=== PATIENT | female | born 1960 | race Caucasian/White ===

== ENCOUNTER 2021-08-28 13:36 | Emergency (ER) | payer OTHER ==
[~2021-08-28] VITALS: Ht 175.3 cm; Wt 70.3 kg
--- OUTSIDE RECORDS SUMMARY | 2021-08-28 13:38 | XMS ---
PreManage Notification: THERESA STEWART Security Mill Washer Events No recent Security Events currently on file CRITERIA MET - [facility] CARE PROVIDERS SARAH ARAGON Physician Coiled Tubing Operator Current PHONE: [phone] Irish has no Care Guidelines for this patient. EMike VISIT COUNT (12 MO.) 1 [facility] TOTAL 1 NOTE: Visits indicate total known visits. ED/UCC VISIT TRACKING (12 MO.) 08/28/2021 13:36 [facility] [place] TYPE: Emergency COMPLAINT: - R HIP PAIN/SPASMS INPATIENT VISIT TRACKING (12 MO.) No inpatient visits to display in this time frame [email or web address]
[2021-08-28] MEDS ORDERED: CARISOPRODOL350 MG PO (21:00)
[2021-08-28] MEDS ORDERED: CELECOXIB100 MG PO (21:00)
[2021-08-28] MEDS ORDERED: ZOLPIDEM TARTRA10 MG PO (21:00)
[2021-08-28] MEDS ORDERED: CLONAZEPAM1 MG PO (21:01)
[2021-08-28] MEDS ORDERED: ASPIRIN81 MG PO (21:01)
[2021-08-28] MEDS ORDERED: CYCLOBENZAPRINE10 MG PO (23:02)
[2021-08-28] MEDS ORDERED: HYDROCODON-ACE1 EA10 PO (23:02)
== END 2021-08-28 23:18 | disposition home or self-care (01) ==
LOC: ED 13:36
DX: M62.838 Other muscle spasm (principal); Z88.5 Allergy status to narcotic agent; Z79.899 Other long term (current) drug therapy; Z79.82 Long term (current) use of aspirin
CPT/HCPCS: 36415; 80048; 81001; 99283

== ENCOUNTER 2021-09-01 09:56 | Emergency (ER) | payer OTHER ==
[~2021-09-01] VITALS: Ht 175.3 cm; Wt 70.3 kg
[~2021-09-01 09:56] MED LIST: ASPIRIN81 MG PO; CARISOPRODOL350 MG PO; CELECOXIB100 MG PO; CLONAZEPAM1 MG PO; CYCLOBENZAPRINE10 MG PO; HYDROCODON-ACE1 EA10 PO; ZOLPIDEM TARTRA10 MG PO
--- OUTSIDE RECORDS SUMMARY | 2021-09-01 10:02 | XMS ---
PreManage Notification: THERESA STEWART Security Edge Stitcher Events No recent Security Events currently on file CRITERIA MET - [facility] - 2 Visits in 30 Days - [facility] CARE PROVIDERS Merlene LeonardP-C Nurse Practitioner: Current PHONE: [phone] Irish has no Care Guidelines for this patient. [place] VISIT COUNT (12 MO.) 2 [facility] TOTAL 2 NOTE: Visits indicate total known visits. ED/UCC VISIT TRACKING (12 MO.) 09/01/2021 09:[address] [facility] [place] TYPE: Emergency COMPLAINT: - R HIP/BACK/LEG PAIN 08/28/2021 13:[address] 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
[2021-09-01] MEDS ORDERED: CYCLOBENZAPRINE10 MG PO (16:10)
[2021-09-01] MEDS ORDERED: HYDROCODON-ACE1 EA10 PO (16:10)
== END 2021-09-01 16:25 | disposition home or self-care (01) ==
LOC: ED 09:56
DX: M54.31 Sciatica, right side (principal); Z88.5 Allergy status to narcotic agent; Z79.899 Other long term (current) drug therapy; Z79.82 Long term (current) use of aspirin
CPT/HCPCS: 36415; 72148; 80048; 85025; 96374; 99284-25; J1170

== ENCOUNTER 2023-03-26 05:50 | Day surgery (SDC) | payer OTHER ==
[2023-03-24 10:23] VITALS: BP 124/83
[~2023-03-26] VITALS: Ht 175.3 cm; Wt 72.0 kg
[~2023-03-26 05:50] MED LIST changes: +NEURONTIN300 MG PO; +VOLTAREN ARTHRI20 GM TP
[2023-03-26 06:00] VITALS: BP 150/64
--- NOTE | 2023-03-26 08:24 | NUR ---
03/26/23 0824 Dulce,Marylu 0896 PT ARRIVED TO PACU ON RA, PT WAKES EASILY AND DENIES CONCERNS. PT FALLS ASLEEP EASILY, RESP EVEN AND UNLABORED.
[2023-03-26 08:42] VITALS: BP 120/72
--- NOTE | 2023-03-26 09:49 | OR ---
[facility] [address] [place], [place] [address] Signed DATE OF OPERATION: 03/26/2023 SURGEON: Viktoria Roa MD PREOPERATIVE DIAGNOSES: 1. Screening. 2. Chronic opioid induced constipation. 3. Internal and external hemorrhoids status post banding. 4. Diverticulosis. POSTOPERATIVE DIAGNOSES: 1. 4 mm polyp at 60 cm in splenic flexure. 2. 3 mm polyp at 8 cm in rectum. 3. Minimal to moderate diverticulosis (left greater than right). 4. Minimal internal and external hemorrhoids. 5. Internal hemorrhoid scarring, status post banding. PROCEDURE: Colonoscopy with hot biopsy. ESTIMATED BLOOD LOSS: None. INDICATIONS: Theresa is a 63-year-old female, asked to see me for a followup colonoscopy. We know she has a long history of chronic constipation exacerbated by opioids for her back issues. She has no family history of colon cancer or polyps. She really has no new lower GI complaints. The regional colorectal surgeon had banded her internal hemorrhoids. She reminded me that her father is a retired colorectal surgeon from the [place], [place] area. I had helped her with both upper and lower endoscopy back in 2007 at the age of 48. She had some routine biopsies from the colon that were negative. She had minimal diverticulosis along with minimal to moderate internal and external hemorrhoids. We had asked her to follow up in 10 years. At that time, she was able to get by with the Versed and fentanyl. She now happen to use opioids because of her chronic back issues. She also reminded me that she has severe postoperative nausea and vomiting. Normally patients do quite well with the propofol. Nevertheless, we did give her preoperative Zofran on this occasion. She also saw her energy projects lead last year and was given a good bill of health. We had reviewed those records as well. In the office I had given her a pamphlet on colonoscopy. We reviewed the nature of the test. There is risk including, but not limited to gas bloating, crampy abdominal pain, bleeding, Electronically Signed By: VIKTORIA ROA MD 03/26/23 0949 PATIENT NAME: THERESA STEWART OPERATIVE REPORT DATE OF : 62 REPORT #: [id number] PHYSICIAN: VIKTORIA ROA MD PCP: KENNETH RAMOS REPORT IS CONFIDENTIAL AND NOT TO BE RELEASED WITHOUT AUTHORIZATION [address] [address] Signed perforation requiring surgery, and missed diagnosis. We also reviewed the written instructions for her bowel prep line by line. She is very familiar with Dulcolax and MiraLAX. Of course, she needs monitored anesthesia care given her significant history of anxiety, requiring clonazepam as well as her history of opioid use. She had expressed understanding and wished to proceed. PROCEDURE NOTE: Theresa was taken into our endoscopy suite and placed in the left lateral decubitus position. She had been given Zofran 8 mg IV before we came in the room. She was given monitored anesthesia care with propofol infusion per our nurse local [place] truck driver. A digital rectal exam was performed. She does have small circumferential external hemorrhoids. She has good sphincter tone. There were no masses. The adult colonoscope was introduced and advanced under direct visualization of the camera. Theresa is tall and she does have a long redundant colon. It took mild abdominal compression and a little extra propofol to get around into the cecum itself. Her prep was quite excellent. We could easily see the appendiceal orifice and the ileocecal valve. The scope was then slowly withdrawn. We took pictures throughout for photodocumentation. She did have a few diverticula moderate in size in the right colon. There were two polyps mentioned above that we easily removed with the help of hot biopsy forceps. She does have diverticula in the left and sigmoid colon. They were moderate in size, few to moderate in number and scattered about. Once down in the rectum, we had retroflexed the scope. We could see the scar tissue from banding of her internal hemorrhoids. She had just one internal hemorrhoid column remaining. She has actually had nice efficacy from the banding. After this, the gas was suctioned out and the colonoscope removed. Theresa tolerated the procedure quite well. RECOMMENDATIONS: Theresa will follow up my office in 7 to 14 days to review her results. Viktoria Roa MD ALB/MODL /[id number] cc: Viktoria Roa MD Electronically Signed By: VIKTORIA ROA MD 03/26/23 0949 PATIENT NAME: THERESA STEWART OPERATIVE REPORT DATE OF : 62 REPORT #: [id number] PHYSICIAN: VIKTORIA ROA MD PCP: KENNETH RAMOS REPORT IS CONFIDENTIAL AND NOT TO BE RELEASED WITHOUT AUTHORIZATION [facility] [address] [place], [place] [address] Signed MIKAYLA Olivas Copies: VIKTORIA ROA MD ~ Electronically Signed By: VIKTORIA ROA MD 03/26/23 0949 PATIENT NAME: THERESA STEWART KAUSHIK OPERATIVE REPORT DATE OF : 62 REPORT #: [id number] PHYSICIAN: VIKTORIA ROA MD PCP: KENNETH RAMOS REPORT IS CONFIDENTIAL AND NOT TO BE RELEASED WITHOUT AUTHORIZATION
--- NOTE | 2023-03-30 15:24 | PATH ---
[facility] [address] [facility] [place], [place] [address] Signed SPECIMEN(S): A SPLENIC FLEXURE COLON POLYP AT 60 CM SPECIMEN(S): B RECTAL POLYP SPECIMEN SOURCE: A. SPLENIC FLEXURE COLON POLYP AT 60 CM B. RECTAL POLYP CLINICAL HISTORY: Screening colonoscopy. History of diverticulosis FINAL PATHOLOGIC DIAGNOSIS: A. Splenic flexure colon polyp at 60 cm: - Tubular adenoma (1 fragment). - Hyperplastic polyp (1 fragment). B. Rectal polyp: - Hyperplastic polyp (1 fragment). JVR:mfr MICROSCOPIC EXAMINATION: Histologic sections of all submitted blocks are examined by light microscopy. These findings, together with the gross examination, support the pathologic diagnosis. GROSS DESCRIPTION: A. The specimen, labeled and designated "Marisa, splenic flexure polyp at 60 cm," is received in formalin and consists of two rodriguez soft tissue fragments, ranging from 0.2 cm. Entirely submitted in (A1). B. The specimen, labeled and designated "Marisa, rectal polyp," is received in formalin and consists of one rodriguez soft tissue fragment, 0.1 cm. Entirely submitted in (B1). JS (under the direct supervision of a pathologist) The Gross Description was prepared using a voice recognition system. The report was reviewed for accuracy; however, sound-alike word errors, addition and/or deletions may occur. If there is any question about this report, please contact Client Services. PERFORMING LABORATORY: Technical component was performed by [facility], [address] [place] [address] (CLIA# [id number]). Professional interpretation was performed by [facility] PATIENT NAME: THERESA STEWART PATHOLOGY DATE OF : 62 REPORT #: [id number] PHYSICIAN: KEM PATHOLOGY PCP: KENNETH RAMOS REPORT IS CONFIDENTIAL AND NOT TO BE RELEASED WITHOUT AUTHORIZATION [facility] [address] [place], [place] [address] [place] [address] (CLIA#: [id number]). Diagnostician: Howie Lynch MD Pathologist Electronically Signed 03/30/2023 Copies: ~ PATIENT NAME: THERESA STEWART PATHOLOGY DATE OF : 62 REPORT #: [id number] PHYSICIAN: KEM PATHOLOGY PCP: KENNETH RAMOS REPORT IS CONFIDENTIAL AND NOT TO BE RELEASED WITHOUT AUTHORIZATION
== END 2023-03-26 08:52 | disposition home or self-care (01) ==
LOC: OPS 05:50 → DS 05:50 → OPS 06:05
PROVIDERS: ATTEND Colon & Rectal Surgery
PROC: 0DBC8ZX Excision of Ileocecal Valve, Via Natural or Artificial Opening Endoscopic, Diagnostic (ICD-10-PCS; principal; 2023-03-26 07:30)
DX: Z12.11 Encounter for screening for malignant neoplasm of colon (principal); D12.3 Benign neoplasm of transverse colon; K62.1 Rectal polyp; K57.30 Diverticulosis of large intestine without perforation or abscess without bleeding; K64.8 Other hemorrhoids; K64.4 Residual hemorrhoidal skin tags; K59.00 Constipation, unspecified; F11.90 Opioid use, unspecified, uncomplicated; M19.90 Unspecified osteoarthritis, unspecified site; J45.909 Unspecified asthma, uncomplicated
CPT/HCPCS: 00811; J0690; J1100; J2001; J2405; J2704; J7121

== ENCOUNTER 2024-02-25 07:25 | Day surgery (SDC) | payer OTHER ==
[~2024-02-25] VITALS: Ht 175.3 cm; Wt 74.5 kg
[~2024-02-25 07:25] MED LIST changes: +ALPRAZOLAM1 MG PO; +CEFAZOLIN SODIUM 2 GM/20 ML SYR IV SCH; +CLONAZEPAM1 MG; -CLONAZEPAM1 MG PO; +DICLOFENAC SODI50 MG PO; +GABAPENTIN300 MG; +IBLOOD GLUCOSE TEST STRIP 1 EA TEST VI PRN; +LACTATED RINGER'S 1,000 ML IV SCH; +LIDOCAINE HCL 1% 5 ML SDV INJ ONE; +MULTI VITAMIN1 EACH PO; +TRANEXAMIC ACID 2,000 MG in SODIUM CHLORIDE 0.9% 100 ML IV SCH; +VOLTAREN ARTHRI20 GM
[2024-02-25] MEDS ORDERED: ZOCOR20 MG PO (07:47)
[2024-02-25] MEDS ORDERED: LISINOPRIL5 MG PO (07:48)
[2024-02-25] MEDS ORDERED: ondansetron HCL 4 MG/2 ML VIAL ONE (07:52)
[2024-02-25] MEDS ORDERED: LIDOCAINE HCL 2% 5 ML SDV ONE (07:52)
[2024-02-25] MEDS ORDERED: KETOROLAC TROMETHAMINE 30 MG/ML VIAL ONE (07:52)
[2024-02-25 07:56] VITALS: BP 133/68
[2024-02-25] MEDS ORDERED: propofoL 200 MG/20 ML VIAL ONE (08:04)
[2024-02-25] MEDS ORDERED: MIDAZOLAM HCL 2 MG/2 ML VIAL ONE (08:04)
[2024-02-25] MEDS ORDERED: HYDROCODONE/ACETA 7.5/325 TAB PO PRN (08:15)
[2024-02-25] MEDS ORDERED: KETOROLAC TROMETHAMINE 15 MG/ML VIAL IV PRN (08:15)
[2024-02-25] MEDS ORDERED: fentaNYL citrate 100 MCG/2 ML VIAL ONE (08:25)
[2024-02-25] MEDS ORDERED: droPERidol 5 MG/2 ML VIAL ONE (08:33)
[2024-02-25] MEDS ORDERED: HYDROCODON-ACE1 EA11 PO (08:57)
--- NOTE | 2024-02-25 09:13 | NUR ---
02/25/24 09 Mulgueta Campos 0856: PT ARRIVED TO PACU VIA STRETCHER. PT NON AROUSABLE AT THIS TIME. PT ON 6L VIA MASK. DRESSING C/D/I. 09: PT ON RA AT THIS TIME. PT AROUSABLE TO NAME. 09: MD AT BEDSIDE.
[2024-02-25 09:31] VITALS: BP 113/69
--- NOTE | 2024-02-25 09:34 | NUR ---
0930 PT BACK TO DS FROM PACU ALERT AND WAKE CONVERSING WITH STAFF. PT DRINKING COFFEE AND EATING CRACKERS TOLERATES WELL. ICE PLACE ON OP SITE. BLANKETS PLACED ON PT. CALL LIGHT WITHIN REACH.
--- NOTE | 2024-02-25 09:38 | NUR ---
PT DENIES PAIN
[2024-02-25 10:18] VITALS: BP 136/70
--- NOTE | 2024-02-25 10:36 | NUR ---
1015 PT AMBULATED TO BATHROOM WITHOUT ASSIST. SHE DENIES PAIN OR NAUSEA. SHE WAS ABLE TO VOID 200ML OF CLEAR YELLOW URINE. PT REPORTS READINESS TO GO HOME DISCHARGE INSTRUCTIONS GIVEN TO PT SHE VOICED UNDERSTANDING.
--- NOTE | 2024-02-26 19:49 | OR ---
[facility] [address] [facility] [place], [place] [address] Signed DATE OF OPERATION: 02/25/2024 SURGEON: Erinn Mackenzie MD PREOPERATIVE DIAGNOSIS: Mass, left posterior shoulder. POSTOPERATIVE DIAGNOSIS: Mass, left posterior shoulder. PROCEDURE PERFORMED: Excision of mass, left shoulder. COMMODITIES BROKER: None. ANESTHESIA: General. BLOOD LOSS: 75 mL. SPECIMEN: The mass was sent to Pathology. BRIEF HISTORY: Theresa is a 64-year-old female with a mass on the back of her shoulder that she was uncomfortable with. It was growing slightly. She wished to get rid of it. Risks, benefits, and alternatives of operative treatment were discussed with her and she elected to proceed. PROCEDURE IN DETAIL: Once consent was obtained she was taken to the operating room. After adequate anesthesia, she was placed on a shoulder bump medial to the shoulder and scapula. The posterior shoulder was prepped and draped in a standard sterile fashion. The mass was easily palpable, was soft and mobile. A 3 cm incision was made overlying the mass, carried through the skin and subcutaneous tissue. Immediately subdermal the mass was noted to be located. This was fairly well circumscribed and easily removed. There was one small vessel proximally that was cauterized. The mass was passed off the table, placed in formalin. The base of the wound was then inspected. No remaining abnormal Electronically Signed By: ERINN MACKENIZE MD 02/26/241948 PATIENT NAME: THERESA STEWART [facility] OPERATIVE REPORT DATE OF : 62 REPORT #: [id number] PHYSICIAN: ERINN MACKENZIE MD PCP: KENNETH RAMOS REPORT IS CONFIDENTIAL AND NOT TO BE RELEASED WITHOUT AUTHORIZATION [facility] [address] [place] [address] [place], [place] [address] Signed soft tissue was remaining. It was then copiously irrigated with normal saline. All bleeders were carefully cauterized and the wound was closed with 2-0 Monocryl for the dermal tissue and 3-0 Stratafix for the skin. Wound was sealed with Super glue and Steri-Strips. It was dressed with an Acticoat-7 dressing. She tolerated the procedure well. All sponge, needle, and instrument counts were correct. We did infiltrate the wound field with 10 mL 0.25% Marcaine with epinephrine. Erinn Mackenzie MD BA/CALISTAL /[id number] Copies: ~ Electronically Signed By: ERINN MACKENZIE MD 02/26/24 1949 PATIENT NAME: THERESA STEWART OPERATIVE REPORT DATE OF : 62 REPORT #: [id number] PHYSICIAN: ERINN MACKENZIE MD PCP: KENNETH RAMOS REPORT IS CONFIDENTIAL AND NOT TO BE RELEASED WITHOUT AUTHORIZATION
--- NOTE | 2024-03-01 18:43 | PATH ---
[facility] [address] [place], [place] [address] Signed SPECIMEN(S): A LEFT SHOULDER MASS SPECIMEN SOURCE: A. LEFT SHOULDER MASS CLINICAL HISTORY: Benign lipomatous neoplasm left shoulder FINAL PATHOLOGIC DIAGNOSIS: Left shoulder mass: - Jerome lobulated adipose tissue consistent with lipoma. - Focal acute inflammation and slight fat necrosis. JVR:clv MICROSCOPIC EXAMINATION: Histologic sections of all submitted blocks are examined by light microscopy. These findings, together with the gross examination, support the pathologic diagnosis. GROSS DESCRIPTION: The specimen, labeled and designated "Roopa Mensah, left shoulder mass," is received in formalin and consists of single fragment yellow soft tissue surrounded by thin pink-rodriguez membrane measuring 4.0 x 2.5 x 1.5 cm. The specimen entirely inked blue sectioned to reveal yellow homogenous cut surfaces with focal hemorrhage. Wave Guide Assembler sections submitted in a single cassette. SCOTTIE (under the direct supervision of a pathologist) The Gross Description was prepared using a voice recognition system. The report was reviewed for accuracy; however, sound-alike word errors, addition and/or deletions may occur. If there is any question about this report, please contact Client Services. PERFORMING LABORATORY: Technical component was performed by [facility], [address] [place] [address] (CLIA# [id number]). Professional interpretation was performed by [facility], [address] [place] [id number] (CLIA#: [id number]). Diagnostician: Howie Lynch MD Pathologist Electronically Signed 03/01/2024 PATIENT NAME: THERESA STEWART PATHOLOGY DATE OF : 62 REPORT #: [id number] PHYSICIAN: [facility] PCP: KENNETH RAMOS REPORT IS CONFIDENTIAL AND NOT TO BE RELEASED WITHOUT AUTHORIZATION [address] [address] Signed Copies: ~ PATIENT NAME: THERESA STEWART PATHOLOGY DATE OF : 62 REPORT #: [id number] PHYSICIAN: [facility] PATHOLOG[facility] PCP: KENNETH RAMOS REPORT IS CONFIDENTIAL AND NOT TO BE RELEASED WITHOUT AUTHORIZATION
== END 2024-02-25 10:30 | disposition home or self-care (01) ==
LOC: DS 07:25
PROVIDERS: ATTEND Specialist
PROC: 0HBCXZZ Excision of Left Upper Arm Skin, External Approach (ICD-10-PCS; principal; 2024-02-25 09:00)
DX: D17.22 Benign lipomatous neoplasm of skin and subcutaneous tissue of left arm (principal); K21.9 Gastro-esophageal reflux disease without esophagitis; I10 Essential (primary) hypertension; E11.9 Type 2 diabetes mellitus without complications; Z88.5 Allergy status to narcotic agent; Z88.8 Allergy status to other drugs, medicaments and biological substances; Z91.012 Allergy to eggs; Z79.899 Other long term (current) drug therapy
CPT/HCPCS: 00450; J0690; J1790; J1885; J2001; J2250; J2405; J2704; J3010; J7121

== ENCOUNTER 2024-11-27 20:55 | Emergency (ER) | payer OTHER ==
[~2024-11-27] VITALS: Ht 175.3 cm; Wt 73.0 kg
[~2024-11-27 20:55] MED LIST changes: -CEFAZOLIN SODIUM 2 GM/20 ML SYR IV SCH; +HYDROCODON-ACE1 EA11 PO; -IBLOOD GLUCOSE TEST STRIP 1 EA TEST VI PRN; -LACTATED RINGER'S 1,000 ML IV SCH; -LIDOCAINE HCL 1% 5 ML SDV INJ ONE; +LISINOPRIL5 MG PO; -TRANEXAMIC ACID 2,000 MG in SODIUM CHLORIDE 0.9% 100 ML IV SCH; +ZOCOR20 MG PO
[2024-11-27] MEDS ORDERED: DIPHTH,PERTUSS(ACELL),TET VAC 0.5 ML SYRINGE IM ONE (21:30)
[2024-11-27 22:03] VITALS: BP 155/73
== END 2024-11-27 22:04 | disposition home or self-care (01) ==
LOC: ED 20:55
DX: S61.012A Laceration without foreign body of left thumb without damage to nail, initial encounter (principal); W26.0XXA Contact with knife, initial encounter; Z91.012 Allergy to eggs; Z88.1 Allergy status to other antibiotic agents; Z88.6 Allergy status to analgesic agent; Z91.040 Latex allergy status; Z88.5 Allergy status to narcotic agent
CPT/HCPCS: 12001; 90471; 90715; 99282-25

== ENCOUNTER 2025-04-02 08:00 | Day surgery (SDC) | payer OTHER ==
[~2025-04-02] VITALS: Ht 175.3 cm; Wt 74.0 kg
[~2025-04-02 08:00] MED LIST changes: +CEFAZOLIN SODIUM 2 GM in SODIUM CHLORIDE 0.9% 100 ML IV SCH; +DULOXETINE HCL30 MG PO; -GABAPENTIN300 MG; +GABAPENTIN300 MG PO; +IBLOOD GLUCOSE TEST STRIP 1 EA TEST VI PRN; +LACTATED RINGER'S 1,000 ML IV SCH; +LIDOCAINE HCL 1% 5 ML SDV INJ ONE; +MORPHINE SULFATE 4 MG/ML VIAL IV PRN; +OXYBUTYNIN CHLO10 MG PO; +OXYCODONE/APAP 5/325 TAB PO PRN; +PHENAZOPYRIDINE HCL 100 MG TAB PO PRN
[2025-04-02] MEDS ORDERED: LIDOCAINE HCL 2% 5 ML SDV ONE (08:02)
[2025-04-02 08:12] VITALS: BP 139/69
[2025-04-02] MEDS ORDERED: KETOROLAC TROMETHAMINE 30 MG/ML VIAL ONE (10:02)
[2025-04-02] MEDS ORDERED: ACETAMINOPHEN 1,000 MG/100 ML VIAL ONE (10:02)
[2025-04-02] MEDS ORDERED: DEXAMETHASONE SOD PHOS 4 MG/ML VIAL ONE (10:02)
[2025-04-02] MEDS ORDERED: LACTATED RINGER'S 1,000 ML IV ONE (10:17)
--- NOTE | 2025-04-02 10:53 | NUR ---
04/02/25 1053 Stephanie Campos 1044: PT ARRIVED TO PACU VIA STRETCHER. PT RESPONDING TO STIMULI AT THIS TIME. PT ON RA. PT HAS NO COMPLAINTS OF PAIN OR NAUSEA. 1052: PT REMAINS ON RA. MD AT BEDSIDE WITH PATIENT.
[2025-04-02 11:42] VITALS: BP 158/77
--- NOTE | 2025-04-02 12:35 | NUR ---
KASEY 1143-PT BACK TO ROOM FROM PACU ON . RECEIVED REPORT FROM STARR MARIO. PT IS AWAKE. RESP EVEN AND UNLABORED. RATES PAIN 1/10. DENIES NAUSEA. REFILLED PT'S WATER. NO OTHER NEEDS AT THIS TIME. CALL LIGHT WITHIN REACH.
[2025-04-02 12:48] VITALS: BP 147/65
--- NOTE | 2025-04-02 12:50 | NUR ---
1230- PT REQUESTING TO USE THE RESTROOM. PT IS ABLE TO AMBULATE WITH A STEADY AND EVEN GAIT TO THE RESTROOM. PT IS UNABLE TO VOID. 2 DROPS OF BRIGHT RED BLOOD NOTED IN THE HAT. PT IS ABLE TO RETURN TO ROOM SAFELY. PT IS PROVIDED WITH MESH UDNERWEAR AND PAD PER REQUEST. 1240- VITAL SIGNS OBTAINED. WATER REFILLED. LR INFUSING. PT DENIES PAIN OR NAUSEA. QUESTIONS AND CONCERNS ANSWERED. PT SITTING UP WATCHING TV. CALL LIGHT IN REACH. BED IS LOCKED IN THE LOWEST POSITION.
--- NOTE | 2025-04-02 13:28 | NUR ---
LE 1328-PT UNABLE TO VOID. VO PER DR CASTLE TO BLADDER SCAN PT. LE 1330-BLADDER SCAN SHOWS 695ML OF URINE IN BLADDER. LE 1337-UPDATE GIVEN TO DR CASTLE. VO FOR A 12F WILLIS CATH PLACEMENT WHEN PT BECOMES UNCOMFORTABLE AND UNALBE TO VOID. LE 1340-EXPLAINED NEW ORDERS TO PT. PT VERBALIZED UNDERSTANDING. PT EATING CRACKERS. WARM BLANKET PROVIDED. CALL LIGHT WITHIN REACH.
--- NOTE | 2025-04-02 14:28 | NUR ---
1420 pt able to ambulate to the bathroom. pt able to void 150 mls of clear yellow urine. 1425 called back into or, verbal okay for pt to discharge home from Dr. Ibrahim.
[2025-04-02 14:54] VITALS: BP 159/76
--- NOTE | 2025-04-02 14:55 | NUR ---
1450 DISCHARGE INFORMATION GONE OVER WITH PT AND SPOUSE. NO QUESTIONS AT THIS TIME. IV DISCONINUED FOR DISCHARGE. 1454 PT DISCHARGED FROM DAY SURGEY VIA WHEELCHAIR TO THE FRONT OF THE HOSPITAL TO PT'S SPOUSE'S CAR. PT HAS PRESCRIPTION AND DISCHARGE INFORMATION IN HAND.
== END 2025-04-02 14:54 | disposition home or self-care (01) ==
LOC: DS 08:00
PROVIDERS: ATTEND Urology
PROC: 0TVD7ZZ Restriction of Urethra, Via Natural or Artificial Opening (ICD-10-PCS; principal; 2025-04-02 09:55)
DX: N39.46 Mixed incontinence (principal); N32.81 Overactive bladder; N36.42 Intrinsic sphincter deficiency (ISD); F41.1 Generalized anxiety disorder; Z79.899 Other long term (current) drug therapy; Z88.1 Allergy status to other antibiotic agents; Z88.5 Allergy status to narcotic agent
CPT/HCPCS: 00910; J0131; J0688; J1100; J1885; J2003; J2405; J2704; J7121; L8606